=== PATIENT | female | born 1950 | race Caucasian/White ===

== ENCOUNTER → 2022-03-12 | Outpatient (CLI) | payer MEDICARE | LOC: RAD 09:04 → MAMMO 09:15 | DX: Z13.820 Encounter for screening for osteoporosis (principal); M85.80 Other specified disorders of bone density and structure, unspecified site ==

== ENCOUNTER → 2024-05-12 | Outpatient (CLI) | payer MEDICARE | LOC: RAD 08:33 | DX: M81.0 Age-related osteoporosis without current pathological fracture (principal) ==

== ENCOUNTER → 2025-03-02 | Outpatient (CLI) | payer MEDICARE | LOC: RAD 09:21 | DX: M89.8X4 Other specified disorders of bone, hand (principal); W19.XXXA Unspecified fall, initial encounter ==